=== PATIENT | female | born 1990 | race Two or more races ===

== ENCOUNTER 2023-06-18 17:04 | Emergency (ER) | payer MEDICARE, MEDICAID, SELFPAY ==
--- NOTE | 2023-06-18 17:18 | ED.ABDPAIN ---
HPI - Abdominal Pain General Chief Complaint: Recheck/Abnormal Lab/Rx Stated Complaint: high blood sugar,n/v Time Seen by Provider: 06/18/23 23:12 Source: patient Limitations: no limitations History of Present Illness HPI narrative: Pt is a 32yo female who presents to the ED for nausea and vomiting. Pt states that for the past couple days she has been fatigued, nauseous, vomiting, and has had diarrhea. She also states lightheadedness, headaches, and SOB without a cough. She states that her right hand has been numb as well. She is a type 1 diabetic and notes that her blood sugars have been in the 200's throughout the course of this illness but she has felt like they were higher. She saw her PCP on Wednesday who suggested she may be dehydrated and have orthostatic hypotension so she tried to increase her fluid intake. Pt denies chest pain, cough, or impaired mobility. Pt takes gabapentin as well as insulin and denies medical conditions aside from diabetes. Related Data Previous Rx's Medication Instructions Recorded ondansetron 4 mg disintegrating 4 mg PO Q8H PRN nausea and 06/19/23 tablet vomiting #20 tabs Allergies Allergy/AdvReac Type Severity Reaction Status Date / Time No Known Allergies Allergy Verified 06/18/23 17:18 Review of Systems Constitutional: Reports chills, Reports fatigue, Denies fever(s), Reports headache(s) and Reports lethargy Eyes: Denies change in vision Reports dizziness and Reports headache(s) Cardiovascular: Denies chest pain and Reports dyspnea Respiratory: Denies cough and Reports dyspnea Gastrointestinal: Reports abdominal pain (lower quadrants), Denies constipation, Reports diarrhea, Reports nausea, Reports vomiting and Denies hematemesis Genitourinary: Denies dysuria Musculoskeletal: Reports numbness (right hand) Reports dizziness, Reports headache(s) and Reports numbness (right hand) Endocrine: Reports fatigue PMFSH Social History Social History Advance Directives: No Advance Directives Information Provided: No Physical Exam ED Vital Signs: Vital Signs - 24 hr 06/18/23 17:19 06/19/23 00:00 Temperature 99.5 F Pulse Rate 119 H 122 H Respiratory Rate 18 16 Blood Pressure 115/70 109/61 Pulse Oximetry 100 99 Oxygen Delivery Method Room Air Room Air BMI result Body Mass Index 23.1 Const General: cooperative, no acute distress, alert, awake and tired appearing Orientation/consciousness: patient oriented x3 Limitations: no limitations HENMT Head: Yes normal to inspection Ears: hearing grossly normal bilaterally General nose exam: Normal external nose present Mouth: Normal oral and palatal mucosa present Eyes General: appearance normal, both eyes and all related structures Pupils: Equal, round and reactive pupils present Resp Effort & Inspection: normal respiratory effort, able to speak in complete sentences, no cough, no grunting, not labored, no nasal flaring, no pursed lip breathing, no retractions, no tripod positioning and no use of accessory muscles Auscultation: clear to auscultation bilaterally and wheezes expiratory wheezes and throughout Cardio Rate: regular rate Rhythm: regular rhythm Heart sounds: S1 normal heart sound present and S2 normal heart sound present GI Inspection: Yes normal to inspection Palpation (GI): Soft to palpation and Tenderness to palpation present (GI) in the LLQ and in the LUQ; not in the RLQ and not in the RUQ Auscultation: normal bowel sounds Neuro General: patient oriented x3 and moves all extremities Cranial nerves: Yes CN's II-XII intact bilaterally and Yes Equal, round and reactive pupils present Cognition (Neuro): normal cognition Gait exam (Neuro): Normal gait present Motor exam (neuro): 5/5 motor strength present throughout Course Course Course Narrative: This is an RME: Additional HPI, ROS, PE not included below will be deferred to primary provider. Patient is a 32-year-old female who presents to the emergency department for evaluation of hyperglycemia and nausea/vomiting. Reports glucose level this morning in the 400, Nausea with vomiting at least 5 times daily. Reports she has not consumed solid food in 5 days due to lack of appetite and nausea. Tolerating some fluids, but less than normal. Today feels tired, dizzy. Takes long acting -> BID took this AM and short acting insulin -> only this morning. Also reports R hand numbness for several days without injury. Tactile fever and chills. Plan: labs, POC glucose Reevaluation(s) Reevaluation #1: Patient reports feeling much better, her pain has improved, she is no longer vomiting. I feel she is stable for discharge and she is comfortable with discharge. He remains up with sinus tachycardia, however she has no leukocytosis, she has no right lower quadrant tenderness, urine shows no signs of infection. Time: 01:43 Medical Decision Making Medical Decision Making MDM Narrative: 32-year-old female presents for evaluation of vomiting and dizziness. She also reports her blood sugar has been elevated. She states that she has a visiting nurse that came my house and told that her A1c has been ?high for some months. The patient is unsure exactly how high it has been. Her sugar currently is 260. There is no evidence of DKA, her anion gap is normal, her CO2 was within normal limits. No significant electrolyte abnormalities. Patient is complaining of abdominal pain but has a reassuring exam, no peritoneal signs. Will treat with IV fluids, Toradol and Zofran and re-evaluate. Differential Diagnosis Differential Diagnoses: The differential diagnosis associated with the presentation includes (orthostatic hypotension secondary to dehydration, flu, gastroenteritis, DKA, community acquired pneumonia) Lab Data [facility] Lab Attestation statement: I reviewed the patient's lab results. See above 06/18/23 17:55 06/18/23 17:55 Labs: Lab Results 06/18/23 06/18/23 06/18/23 Range/Units 17:24 17:55 18:06 WBC 7.3 (4.8-10.8) X10*3/uL RBC 5.24 (4.20-5.50) X10*6/uL Hgb 12.1 (12.0-16.0) g/dl Hct 39.9 (37.0-47.0) % MCV 76.1 L (80.0-98.0) fL MCH 23.1 L (27.0-33.0) pg MCHC 30.3 L (31.0-35.0) g/dl RDW 12.7 (11.0-16.0) % Plt Count 232 (160-400) X10*3/uL MPV 9.9 (9.4-12.3) fL Immature Gran % (Auto) 0.1 (0.0-0.4) % Neut % (Auto) 33.6 L (45-73) % Lymph % (Auto) 57.9 H (20-40) % [place] % (Auto) 7.1 (2-11) % Eos % (Auto) 1.2 (0-4) % Baso % (Auto) 0.1 (0-2) % Lymph # (Auto) 4.2 (1.2-4.9) X10*3/uL [place] # (Auto) 0.5 (0.1-1.2) X10*3/uL Eos # (Auto) 0.1 (0.0-0.4) X10*3/uL Baso # (Auto) 0.0 (0.0-0.2) X10*3/uL Abs Immat Gran (auto) 0.01 (0.00-0.03) X10*3/uL Absolute Neuts (auto) 2.5 (2.0-8.3) x10*3/uL Absolute Nucleated RBC 0.000 (0.0-0.012) X10*3/uL Nucleated RBC % (auto) 0.0 (0.0-0.2) /100WBC VBG pH 7.37 (7.32-7.43) VBG pCO2 48 mmHg VBG pO2 55 mmHg VBG HCO3 28 H (22-26) mmol/L VBG O2 Saturation 84.0 % VBG Base Excess 2.2 mmol/L Sodium 140 (135-145) mmol/L Potassium 3.5 (3.3-5.1) mmol/L Chloride 105 (96-108) mmol/L Carbon Dioxide 27 (22-29) mmol/L Anion Gap 12 (12-20) BUN 9 (9-16) mg/dL Creatinine 0.62 (0.5-1.4) mg/dL Estim Creat Clear Calc 97.3 Estimated GFR > 60 POC Glucose 259 H (60-115) mg/dL Random Glucose 223 H (60-115) mg/dL Calcium 9.6 (8.4-10.2) mg/dL Magnesium 1.5 L (1.6-2.6) mg/dL Total Bilirubin 0.4 (0.0-1.0) mg/dL AST 14 (5-31) U/L ALT 21 (0-31) U/L Alkaline Phosphatase 206 H (39-117) U/L Total Protein 7.1 (6.5-8.0) g/dL Albumin 3.8 (3.5-5.0) g/dL Lipase 23 (8-78) U/L Beta-Hydroxybutyrate 0.09 (0.02-0.27) mmol/L Urine Color Yellow Urine Appearance Clear Urine pH 5.5 (5.0-9.0) Ur Specific [place] >= 1.030 H (1.005-1.025) Urine Protein Negative (Neg-Trace) mg/dL Urine Glucose (UA) >=1000 H (Negative) mg/dL Urine Ketones Negative (Negative) mg/dL Urine Blood Negative (Negative) Urine Nitrite Negative (Negative) Ur Leukocyte Esterase Negative (Negative) Urine RBC 0-2 (0-2) /HPF Urine WBC 0-5 (0-5) /HPF Ur Squamous Epith Cells 3-5 (0-2) /HPF Urine Bacteria None Seen (None Seen) Hyaline Casts 0-2 (0-2) /LPF Urine Test NEGATIVE (NEGATIVE) COVID-19 (AMISHA) Negative (Negative) COVID-19 Clin Com See Note Influenza Type A (ANGE) Negative (Negative) Influenza Type B (ANGE) Negative (Negative) Influenza A & B Note See Note 06/18/23 Range/Units 22:58 WBC (4.8-10.8) X10*3/uL RBC (4.20-5.50) X10*6/uL Hgb (12.0-16.0) g/dl Hct (37.0-47.0) % MCV (80.0-98.0) fL MCH (27.0-33.0) pg MCHC (31.0-35.0) g/dl RDW (11.0-16.0) % Plt Count (160-400) X10*3/uL MPV (9.4-12.3) fL Immature Gran % (Auto) (0.0-0.4) % Neut % (Auto) (45-73) % Lymph % (Auto) (20-40) % [place] % (Auto) (2-11) % Eos % (Auto) (0-4) % Baso % (Auto) (0-2) % Lymph # (Auto) (1.2-4.9) X10*3/uL [place] # (Auto) (0.1-1.2) X10*3/uL Eos # (Auto) (0.0-0.4) X10*3/uL Baso # (Auto) (0.0-0.2) X10*3/uL Abs Immat Gran (auto) (0.00-0.03) X10*3/uL Absolute Neuts (auto) (2.0-8.3) x10*3/uL Absolute Nucleated RBC (0.0-0.012) X10*3/uL Nucleated RBC % (auto) (0.0-0.2) /100WBC VBG pH (7.32-7.43) VBG pCO2 mmHg VBG pO2 mmHg VBG HCO3 (22-26) mmol/L VBG O2 Saturation % VBG Base Excess mmol/L Sodium (135-145) mmol/L Potassium (3.3-5.1) mmol/L Chloride (96-108) mmol/L Carbon Dioxide (22-29) mmol/L Anion Gap (12-20) BUN (9-16) mg/dL Creatinine (0.5-1.4) mg/dL Estim Creat Clear Calc Estimated GFR POC Glucose 260 H (60-115) mg/dL Random Glucose (60-115) mg/dL Calcium (8.4-10.2) mg/dL Magnesium (1.6-2.6) mg/dL Total Bilirubin (0.0-1.0) mg/dL AST (5-31) U/L ALT (0-31) U/L Alkaline Phosphatase (39-117) U/L Total Protein (6.5-8.0) g/dL Albumin (3.5-5.0) g/dL Lipase (8-78) U/L Beta-Hydroxybutyrate (0.02-0.27) mmol/L Urine Color Urine Appearance Urine pH (5.0-9.0) Ur Specific [place] (1.005-1.025) Urine Protein (Neg-Trace) mg/dL Urine Glucose (UA) (Negative) mg/dL Urine Ketones (Negative) mg/dL Urine Blood (Negative) Urine Nitrite (Negative) Ur Leukocyte Esterase (Negative) Urine RBC (0-2) /HPF Urine WBC (0-5) /HPF Ur Squamous Epith Cells (0-2) /HPF Urine Bacteria (None Seen) Hyaline Casts (0-2) /LPF Urine Test (NEGATIVE) COVID-19 (AMISHA) (Negative) COVID-19 Clin Com Influenza Type A (ANGE) (Negative) Influenza Type B (ANGE) (Negative) Influenza A & B Note Medications Administered Discontinued Medications Generic Name Dose Route Start Last Admin Trade Name Freq PRN Reason Stop Dose Admin Sodium Chloride 1,000 mls @ 999 mls/hr 06/18/23 23:45 06/19/23 00:48 Ns IV 06/19/23 00:45 999 mls/hr .Q1H1M DAVID Administration Ketorolac Tromethamine 30 mg 06/18/23 23:31 06/19/23 00:51 Ketorolac Tromethamine 30 Mg/Ml Vial IVPUSH 06/18/23 23:32 30 mg ONCE ONE Administration Ondansetron HCl 4 mg 06/18/23 23:31 06/19/23 00:52 Ondansetron Hcl 4 Mg/2 Ml Vial IVPUSH 06/18/23 23:32 4 mg ONCE ONE Administration Discharge Plan Discharge Clinical Impression: Vomiting, Hyperglycemia Patient Disposition: Home, Self-Care Instructions: Acute Nausea and Vomiting (ED) Additional Instructions: Your workup in the emergency department today was reassuring. Use Zofran as needed for nausea or vomiting Use ibuprofen/Tylenol for pain. Follow-up with your primary doctor to get better control of her blood sugar Return for new or worsening symptoms especially if you develop a fever Prescriptions: New ondansetron 4 mg tablet,disintegrating 4 mg PO Q8H PRN (Reason: nausea and vomiting) Qty: 20 0RF
[2023-06-18 17:19] VITALS: BP 115/70; PULSE 119; RESP 18; TEMP 37.5; O2SAT 100; BMI 23.1
[2023-06-18 17:27] LABS: Glucose, Whole Blood 259 mg/dL (60-115)
[2023-06-18 18:08] LABS: MANUAL DIFF FLAG NO
[2023-06-18 18:12] LABS: Appearance Urine Clear; Basophils Percent Auto 0.1 % (0-2); Color Urine Yellow; Eosinophils Absolute Auto 0.1 X10*3/uL (0.0-0.4); Eosinophils Percent Auto 1.2 % (0-4); Glucose Urine UA >=1000 mg/dL (Negative); Hematocrit 39.9 % (37.0-47.0); Hemoglobin 12.1 g/dl (12.0-16.0); Imm Gran Abs Auto 0.01 X10*3/uL (0.00-0.03); Imm Gran Pct Auto 0.1 % (0.0-0.4); Leukocyte Esterase Urine Negative (Negative); Lymphocytes Absolute Auto 4.2 X10*3/uL (1.2-4.9); Lymphocytes Percent Auto 57.9 % (20-40); Mean Corpuscular HGB Conc 30.3 g/dl (31.0-35.0); Mean Corpuscular Hemoglobin 23.1 pg (27.0-33.0); Mean Corpuscular Volume 76.1 fL (80.0-98.0); Mean Platelet Volume 9.9 fL (9.4-12.3); Monocytes Absolute Auto 0.5 X10*3/uL (0.1-1.2); Monocytes Percent Auto 7.1 % (2-11); Neutrophils Absolute Auto 2.5 x10*3/uL (2.0-8.3); Neutrophils Percent Auto 33.6 % (45-73); Nitrite Urine Negative (Negative); PH 5.5 (5.0-9.0); Platelet Count 232 X10*3/uL (160-400); Red Blood Count 5.24 X10*6/uL (4.20-5.50); Red Cell Distribution Width 12.7 % (11.0-16.0); Specific Gravity - Urine >= 1.030 (1.005-1.025); UMIC TRIGGER UACC YES; Urine Blood Negative (Negative); Urine Ketones Negative (Negative); Urine Protein Negative (Neg-Trace); White Blood Count 7.3 X10*3/uL (4.8-10.8)
[2023-06-18 18:14] LABS: UPreg QC Valid YES; Urine Pregnancy NEGATIVE (NEGATIVE)
[2023-06-18 18:17] LABS: Bacteria Urine None Seen (None Seen); Hyaline Casts Urine 0-2 /LPF (0-2); RBC Urine 0-2 /HPF (0-2); WBC Urine 0-5 /HPF (0-5)
[2023-06-18 18:27] LABS: Alanine Aminotransferase 21 U/L (0-31); Albumin Level 3.8 g/dL (3.5-5.0); Alkaline Phosphatase 206 U/L (39-117); Anion Gap 12 (12-20); Aspartate Amino Transferase 14 U/L (5-31); Beta-Hydroxybutyrate 0.09 mmol/L (0.02-0.27); Bilirubin Total 0.4 mg/dL (0.0-1.0); Blood Urea Nitrogen 9 mg/dL (9-16); Calcium 9.6 mg/dL (8.4-10.2); Carbon Dioxide 27 mmol/L (22-29); Chloride 105 mmol/L (96-108); Creatinine Clr Calc Pharmacy 97.3; Estimated Glomerular Filt Rate > 60; Glucose Random 223 mg/dL (60-115); Lipase 23 U/L (8-78); Magnesium 1.5 mg/dL (1.6-2.6); Potassium 3.5 mmol/L (3.3-5.1); Sodium 140 mmol/L (135-145); Total Protein 7.1 g/dL (6.5-8.0)
[2023-06-18 18:31] LABS: Venous Blood Gas Refer to POC result
[2023-06-18 18:31] LABS: VBG Base Excess 2.2 mmol/L; VBG HCO3 28 mmol/L (22-26); VBG pCO2 48 mmHg; VBG pH 7.37 (7.32-7.43); VBG pO2 55 mmHg
[2023-06-18 18:43] LABS: COVID-19 Test Negative (Negative); IDNOW Serial# 58CA691E
[2023-06-18 18:44] LABS: IDNOW Serial# 9DB6401D; Influenza A Negative (Negative); Influenza B2 Negative (Negative)
[2023-06-18 23:03] LABS: Glucose, Whole Blood 260 mg/dL (60-115)
[2023-06-19] VITALS: BP 109/61; PULSE 122; RESP 16; O2SAT 99
[2023-06-19] MEDS: 0.9 % Sodium Chloride 1,000 ML 999 ML IV (00:48)
[2023-06-19] MEDS: Ketorolac Tromethamine 30 MG/ML VIAL IVPUSH (00:51)
[2023-06-19] MEDS: ondansetron HCL 4 MG/2 ML VIAL IVPUSH (00:52)
== END 2023-06-19 02:00 | disposition home or self-care (01) ==
PROVIDERS: Nurse Practitioner Family; Emergency Provider Internal Medicine
DX: R11.2 Nausea with vomiting, unspecified (principal); R73.9 Hyperglycemia, unspecified; R06.02 Shortness of breath; R05.9 Cough, unspecified; R10.9 Unspecified abdominal pain; R00.0 Tachycardia, unspecified; Z11.52 Encounter for screening for COVID-19; Z20.822 Contact with and (suspected) exposure to COVID-19; Z79.4 Long term (current) use of insulin; Z79.899 Other long term (current) drug therapy
CPT/HCPCS: 36415; 80053; 81001; 81025; 82010; 82803; 82947; 83690; 83735; 85025; 87502; 87635; 96361; 96374; 96375; 99285; J1885; J2405